=== PATIENT | male | born 1945 | race Caucasian/White ===

== ENCOUNTER 2016-08-10 19:51 | Observation (INO) | payer MEDICARE ==
[~2016-08-10] VITALS: Ht 177.8 cm; Wt 73.4 kg
--- NOTE | ~2016-08-10 | OP ---
PATIENT NAME: DEIDRE BLAKE MEDICAL RECORD: [id number] :[birth year] LOCATION:D. D.2124 ADMISSION DATE:08/10/16 SURGEON: CHARLETTE SINGH M.D. DATE OF OPERATION: 08/11/2016 PROCEDURES PERFORMED: 1. Selective coronary angiography. 2. Left heart catheterization with ventriculogram. 3. Bypass angiography. 4. Left internal mammary injection. 5. Iliofemoral runoff. INDICATION: A 70-year-old gentleman who presents with symptoms of accelerating angina. He has been having claudication involving his left hip as well. EQUIPMENT USED: A 5-Ecuadorean JL4, AR modified catheter, mammary catheter, pigtail catheter. TECHNIQUE: A 5-Ecuadorean sheath was inserted in retrograde fashion in the right common femoral artery. Next, selective coronary angiography was performed in standard 5-Ecuadorean JL4 and AR modified catheters. Bypass angiography was performed using an AR modified catheter. The internal mammary was selected with internal mammary catheter. Left heart catheterization was performed using pigtail catheter. Next, the catheter was pulled down to the level of T12. Power injection was performed to visualize the distal aorta. Next, the catheter was pulled down to the level of the aortic bifurcation. Right and left lower extremity angiograms were then performed. CORONARY ANATOMY: 1. Left main: Left main trunk is moderate in caliber. It gives rise to the LAD and circumflex. It has mild irregularities. 2. LAD: This vessel is 100% occluded in the proximal segment. There is competitive flow seen to the LAD. 3. Circumflex: This vessel is moderate in caliber. It has mild irregularities throughout its course, but nothing worse than 20%. 4. Right coronary: This vessel is moderate in caliber and dominant. It is 100% occluded in the mid segment. 5. Saphenous vein graft to the PDA. This graft is widely patent throughout its course. The anastomosis is free of disease. 6. Left internal mammary artery to the LAD: This graft is widely patent throughout its course. The anastomosis is free of disease. 7. Left ventricle: Left ventricle is normal size. There is mild LV dysfunction noted. Estimated ejection is in the order of 40%. AORTOFEMORAL RUNOFF: Distal aorta is somewhat ectatic. Each kidney receives a single arterial supply. Both renal arteries are widely patent. 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 The right common iliac artery demonstrates a hazy 70% stenosis. Right common femoral artery is widely patent. Right superficial artery is widely patent. Right popliteal artery is widely patent. Below the knee, there appears to be a 2-vessel runoff. Left common iliac artery demonstrates an ulcerated 80% stenosis. Left common femoral artery is widely patent. Left superficial femoral artery is widely patent. Left popliteal artery is widely patent. Below the knee, there appears to be 2-vessel runoff. OPERATIVE REPORT [id number] DEIDRE BLAKE IMPRESSION: 1. Patent bypass grafts to the left anterior descending and right coronary artery. The circumflex has mild disease. It appears unchanged from previous study. 2. Mild left ventricular dysfunction. 3. 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 RECOMMENDATIONS: At this point, we will stage him and likely bring him back for stenting to both iliac arteries. TRANSINT:[id number] Voice Confirmation ID: [id number] DOCUMENT ID: [id number] CHARLETTE SINGH M.D. CC: [id number] DICTATION DATE: 08/11/161457 YARD CALLER: 08/11/162058 DIS IN 08/11/16 [facility] [address] [place] [address]
--- NOTE | ~2016-08-10 | HEMODYNAMI ---
PATIENT:DEIDRE BLAKE MEDICAL RECORD: [id number] : 49 LOCATION:[address] [id number] ADMISSION DATE: 08/10/16 Generatedon:08/11/201614:57 Patient name: DEIDRE BLAKE Patient #: [id number] SSN: DO B: 1945 Date of study: 08/11/2016 Page: Of Hemodynamic Procedure Report Patient Data Patient Demographics Procedure consent was obtained First Name: DEIDRE Gender: Male Last Name: HAYDEN : 1945 [facility] Initial: L Age: 70 year(s) Patient #: [id number] Race: Unknown Additional ID: [id number] Contact details Address: [address] [place] [address] [place] State: [place] City: [place] Zip code: [address] Admission Admission Data Admission Date: 08/10/2016 Admission Time: 21:46 Room #: D2124 Lab Results Lab Result Date: 08/11/2016 Lab Result Time: 0:00 Biochemistry Name Units Result Min Max BUN mg/dl 8 --(*---)-- 7 18 Creatinine mg/dl 1 --(--*-)-- 0.6 1.3 CBC Name Units Result Min Max Hemoglobin g/dl 15 --(-*--)-- 13.5 17.5 Procedure Procedure Types Cath Procedure Diagnostic Procedure LHC LHC w/Coronaries w/Grafts Miscellaneous Procedures Moderate Sedation up to 30 minutes Peripheral Cath Diagnostic Procedure Cath Peripheral Kgsxs-Hebkjvk-Jug-Off Procedure Description Procedure Date Procedure Date: 08/11/2016 Procedure Start Time: 14:30 Procedure End Time: 14:56 Procedure Staff Name Function Rayo Sharpe MD Performing Physician Payton Collazo RN Nurse Madi Morton RT Scrub Amberly Ramirez RT Monitor Elsy Abel RT Monitor Procedure Data Cath Procedure Fluoroscopy Diagnostic fluoroscopy Total fluoroscopy Time: 3.9 time: 3.9 min min Diagnostic fluoroscopy Total fluoroscopy dose: 669 dose: 669 mGy mGy Contrast Material Contrast Material Type Amount (ml) Isovue 300 145 Entry Location Entry Primary Successful Side Size Upsize Upsize Entry Closure Succes sful Closure Location (Fr) 1 (Fr) 2 (Fr) Remarks Device Remarks Femoral Right 5 Fr Exoseal artery Estimated blood loss: 10 ml Diagnostic catheters Device Type Used For End Catheter Placement Cordis 5Fr JL 4.0 Procedure Catheter (MP) Diagnostic Infinity 5Fr Procedure AR MOD Catheter Diagnostic Infinity 5Fr Procedure IM catheter Cordis 5Fr Pigtail Procedure Catheter (MP) Procedure Complications No complications Procedure Medications Medication Administration Route Dosage Oxygen NC 2 l/min Heparin Flush Bag added to field 2 bags (1000units/500ml NS) Lidocaine 2% added to field 20 Versed I.V. 1 mg Fentanyl I.V. 50 mcg Versed I.V. 1 mg Fentanyl I.V. 50 mcg Hemodynamics Rest HGB: 15 (g/dl) Heart Rate: 72 (bpm) Pressure Samples Time Site Value (mmHg) Purpose Heart Use Rate(bpm) 14:40 LV 102/-1,12 Snapshot 73 14:41 AO 100/53(72) Pullback 76 14:41 LV 102/0,13 Pullback 76 14:47 AO 94/49(66) Snapshot 71 Gradients Valve Time Site 1 Site 2 Mean SEP/DFP Peak To Heart Use (mmHg) (sec/min) Peak Rate (mmHg) (bpm) Aortic 14:41 LV AO 19 10 2 76 102/0,13 100/53(72) Calculations Valve P-P Mean Valve Index Valve Source Name Gradient Area Flow (cm2) Aortic 2 19 2 19 Snapshots Pre Cath Intra NCS Post Cath Vital Signs Time Heart Resp SPO2 NIBP (mmHg) Rhythm Pain Sedation Rate (ipm) (%) Status Level (bpm) 14:16:29 72 16 100 135/82(117) NSR 0 (11) 10(A) , No pain 14:20:37 72 16 99 137/78(114) NSR 0 (11) 10(A) , No pain 14:24:46 74 14 99 117/75(94) NSR 0 (11) 10(A) , No pain 14:28:44 91 30 98 121/88(108) NSR 0 (11) 10(A) , No pain 14:32:52 71 24 98 113/66(98) NSR 0 (11) 9(A) , No pain 14:36:56 73 16 98 114/67(95) NSR 0 (11) 9(A) , No pain 14:41:04 79 19 98 104/53(70) NSR 0 (11) 9(A) , No pain 14:45:07 70 19 98 96/57(72) NSR 0 (11) 9(A) , No pain 14:49:09 72 19 98 99/56(76) NSR 0 (11) 9(A) , No pain 14:53:11 69 19 98 94/58(78) NSR 0 (11) 9(A) , No pain 14:54:18 68 19 98 95/58(74) NSR 0 (11) 9(A) , No pain Medications Time Medication Route Dose Verified Delivered Reason Notes Effec tiveness by by 14:08:04 Oxygen NC 2 Rayo Payton Per l/min Dell Collazo RN physician 14:08:20 Heparin Flush added 2 Rayo Rayo used for Bag to bags Dell Sharpe MD procedure (1000units/500ml field NS) 14:08:30 Lidocaine 2% added 20ml Rayo Rayo used for to vial Dell Sharpe MD procedure field 14:17:44 Versed I.V. 1 mg Rayo Payton for Dell Collazo RN sedation 14:18:01 Fentanyl I.V. 50 Rayo Payton for mcg Dell Collazo RN sedation 14:28:21 Versed I.V. 1 mg Rayo Payton for Dell Collazo RN sedation 14:28:24 Fentanyl I.V. 50 Rayo Payton for epifanio Collazo RN sedation Procedure Log Time Note 13:32:10 Madi Morton RT(R) sent for patient. Start room use. 13:32:11 Time tracking: Regular hours 13:32:15 Plan of Care:Hemodynamics will remain stable., Cardiac rhythm will remain stable., Comfort level will be maintained., Respiratory function will remain adequate., Patient/ family verbilizes understanding of procedure., Procedure tolerated without complication., Recovers from procedure without complications.. 14:06:55 Patient received from Med II to [facility] 2 Alert and oriented. Tansferred to table in Supine position. 14:07:08 Warm blankets applied, and anu hugger turned on for patient comfort. 14:07:09 Correct patient and procedure confirmed by team. 14:07:11 Signed procedure consent form obtained from patient. 14:07:14 ECG and BP/O2 sat monitors applied to patient. 14:08:04 Oxygen 2 l/min NC was administered by Payton Collazo RN; Per physician; 14:08:20 Heparin Flush Bag (1000units/500ml NS) 2 bags added to field was administered by Rayo Sharpe MD; used for procedure; 14:08:30 Lidocaine 2% 20ml vial added to field was administered by Rayo Sharpe MD; used for procedure; 14:15:18 Baseline sample Acquired. 14:15:18 Vital chart was started 14:15:23 Full Disclosure recording started 14:15:28 H&P Date Dictated: 08/11/2016 New H&P dictated by physician.. 14:15:55 Pre-procedure instructions explained to patient. 14:15:55 Pre-op teaching completed and patient verbalized understanding. 14:15:59 Family in waiting room. 14:16:04 Patient NPO since Midnight. 14:16:13 Is the patient allergic to Iodine/contrast media? No. 14:16:14 Was the patient premedicated? No 14:16:27 Is patient on blood thinner?Yes 14:16:29 ACC The patient was administered the following blood thiners within the last 24 hours: ACCPlavix 14:16:32 Patient diabetic? No. 14:16:35 Previous problem with sedation/anesthesia? No ? 14:16:47 Snore? Yes 14:16:49 Sleep apnea? No 14:16:52 Deviated septum? No 14:16:56 Opens mouth fully? Yes 14:16:58 Sticks out tongue? Yes 14:17:00 Airway obstruction? No ? 14:17:04 Dentures? No ? 14:17:09 Pre procedure: right dorsailis pedis pulse 1+ Palpable, but thready & weak; easily obliterated 14:17:12 Patient pain scale 0/10 ?. 14:17:18 IV patent on arrival in left forearm with 0.9% NaCl at [facility]. 14:17:24 Lab results completed and on chart. 14:17:29 Bilateral groins area was prepped with chlora-prep and draped in sterile fashion 14:17:30 Alarms reviewed by R. N. 14:17:31 Sharps counted by scrub and verified by R.N. 14:17:33 Physician arrived 14::33 --------ALL STOP TIME OUT------ 14:17:34 Final Timeout: patient, procedure, and site verified with staff and physician. All members of the team are in agreement. 14:17:36 Bilateral groins site verified by team. 14:17:40 Physical assessment completed. ASA score P 2 - A patient with mild systemic disease as per Rayo Sharpe MD. 14:17:44 Versed 1 mg I.V. was administered by Payton Collazo RN; for sedation; 14:17:44 Sedation plan: IV Moderate Sedation Versed, Fentanyl 14:18:01 Fentanyl 50 mcg I.V. was administered by Payton Collazo RN; for sedation; 14:18:21 Use device set Femoral Dx 14:18:22 Acist Syringe opened to sterile field. 14:18:22 Bag Decanter opened to sterile field. 14:18:23 Medline Cath Pack opened to sterile field. 14:18:23 Terumo 5Fr [place] Sheath opened to sterile field. 14:18:24 St Judson 260cm J .035 wire opened to sterile field. 14:18:25 Acist Hand Control opened to sterile field. 14:18:25 Acist Manifold opened to sterile field. 14:18:26 Diagnostic Infinity 5Fr Multipack catheter opened to sterile field. 14:18:26 Tegaderm 4 x 4 opened to sterile field. 14:19:37 Lab Result : Hemoglobin 15 g/dl 14:19:37 Lab Result : Creatinine 1 mg/dl 14:19:37 Lab Result : BUN 8 mg/dl 14:28:21 Versed 1 mg I.V. was administered by Payton Collazo RN; for sedation; 14:28:24 Fentanyl 50 mcg I.V. was administered by Payton Collazo RN; for sedation; 14:29:36 Zero performed for pressure channel P1 14:29:56 Procedure started. 14:30:08 Local anesthetic to right femoral artery with Lidocaine 2% by Rayo Sharpe MD.INITIAL ACCESS ONLY 14:31:26 A 5 Fr sheath was inserted into the Right Femoral artery 14:32:18 A Cordis 5Fr JL 4.0 Catheter (MP) was advanced over the wire and used for Procedure. 14:32:48 LCA angiography performed. 14:33:54 Catheter exchanged over wire. 14:34:19 A Diagnostic Infinity 5Fr AR MOD Catheter was advanced over the wire and used for Procedure. 14:34:52 RCA angiography performed. 14:35:30 SVG to RCA angiography performed. 14:37:00 Catheter exchanged over wire. 14:37:05 A Diagnostic Infinity 5Fr IM catheter was advanced over the wire and used for Procedure. 14:38:04 EMANUEL to LAD angiography performed. 14:38:48 Catheter exchanged over wire. 14:38:54 A Cordis 5Fr Pigtail Catheter (MP) was advanced over the wire and used for Procedure. 14:40:37 LV angiography performed. 14:40:38 LV gram done using ROSENBAUM 14:40:40 LV hemodynamics recorded. 14:40:46 Injector settings: Ml/sec: 7, Volume: 15, 14:40:52 EF : 40 % 14:42:39 Catheter pulled down to level of T-12. 14:42:55 Abdominal Aortagram was performed. 14:44:15 Left leg runoff performed. 14:45:24 Right leg runoff performed. 14:50:20 Catheter exchanged over wire. 14:52:12 Cordis 5Fr Exoseal opened to sterile field. 14:53:10 Sheath removed intact; hemostasis achieved with Exoseal to the Right Femoral artery. 14:53:12 Procedure ended.(Physican Out) 14:55:20 Fluoroscopy time 03.90 minutes. 14:55:24 Fluoroscopy dose: 669 mGy 14:55:24 Flurop Dose total: 669 14:55:29 Contrast amount:Isovue 300 145ml. 14:55:30 Sharps counted by scrub and verified by R.N. 14:55:32 Insertion/operative site no bleeding no hematoma. 14:55:39 Post Procedure Pulses reassessed and unchanged 14:55:42 Post-procedure physical assessment completed. ASA score P 2 - A patient with mild systemic disease as per Rayo Sharpe MD. 14:55:44 Post procedure rhythm: unchanged. 14:55:46 Estimated blood loss: 10 ml 14:55:47 Post procedure instruction explained to patient.Patient verbalizes understanding. 14:55:47 Patient needs reinforcement of post procedure teaching. 14:56:00 Procedure type changed to Cath procedure, Diagnostic procedure, LHC, LHC w/Coronaries w/Grafts, Miscellaneous Procedures, Moderate Sedation up to 30 minutes, Peripheral Cath Diagnostic Procedure, Cath Peripheral, Yaxsa-Fihaxwl-Lgs-Off 14:56:04 Procedure Complication : No complications 14:56:27 Procedure and supply charges have been captured, reviewed, submitted and are correct. 14:56:30 Vital chart was stopped 14:56:30 See physician's report for complete and final results. 14:56:32 Report given to PCU. 14:56:36 Patient transfered to PCU with Bed. 14:56:38 Procedure ended. 14:56:38 Full Disclosure recording stopped 14:56:45 End room use (Document Last) Device Usage Item Name Manufacture Quantity Catalog Hospital Part Current Minimal Lo t# / Number Charge Number Stock Stock Serial# Code Acist Acist 1 70406 [id number] 196752 [id number] 20 Syringe [employer] Bag Microtek 1 2002S 011026 11229 392178 5 Decanter [employer] Inc[employer] Medline Cardinal 1 [id number] 931033 76973 503898 5 Cath Pack Health Terumo 5Fr Terumo 1 [id number] 169009 067965 215362 [address] Judson 1 088688 995847 279467 236935 30 260cm J .035 wire Acist Hand Acist 1 74992 139359 214903 188599 5 Control Medical Systems Inc Acist Acist 1 84502 158668 943035 772580 5 Manifold [employer] Inc Diagnostic Cardinal 1 [id number] 459557 48063 235750 30 Circuport 5Fr Multipack catheter Tegaderm 4 3M 1 1626W 281337 586320 076384 5 x 4 Cordis 5Fr Cardinal 1 082928 5 JL 4.0 Health Catheter (MP) Diagnostic Cardinal 1 [id number] 133602 685767 831301 15 Infinity Health 5Fr AR MOD Catheter Diagnostic Cardinal 1 [id number] 709504 742599 565033 5 [employer] Health 5Fr IM catheter Cordis 5Fr Cardinal 1 124953 5 Pigtail Health Catheter (MP) Cordis 5Fr Cardinal 1 EX500 134205 183498 562221 10 Exoseal Health Signature Audit [place] Stage Time Signature Unsigned Intra-Procedure 08/11/2016 Madi Morton 2:57:21 PM RT(R) Signatures Monitor : Amberly Ramirez Signature : RT Date : Time : Monitor : Elsy Abel RT Signature : Date : Time : [facility] [address] [place] [address]
[2016-08-10 20:56] LABS: BASOPHILS 0.3 % (0-2); EOSINOPHILS 1.8 % (0-7); HEMATOCRIT 44.8 % (42.0-54.0); HEMOGLOBIN 15.1 g/dL (13.5-17.5); IMMATURE GRANULOCYTES 0.2 % (0-5); LYMPHOCYTES 29.3 % (15-50); MCH 32.8 pg (26.0-34.0); MCHC 33.7 g/dL (31.0-37.0); MCV 97.4 fL (80.0-100.0); MEAN PLATELET VOLUME 9.4 fL (7.4-10.4); MONOCYTES 8.4 % (2-11); PLATELET COUNT 153 10x3/uL (130-400); RDW 12.8 % (11.5-14.5); WBC 8.8 10x3/uL (4.8-10.8)
[2016-08-10 21:03] LABS: INR 1.03 (0.85-1.17); PROTIME 13.3 SECONDS (11.6-15.0)
[2016-08-10 21:04] LABS: APTT 29.3 SECONDS (22.8-39.4)
[2016-08-10 21:05] LABS: D-DIMER-QUANTITATIVE < 0.27 ug/mLFEU (0.20-0.54)
[2016-08-10 21:21] LABS: ALBUMIN 3.6 g/dL (3.4-5.0); ALKALINE PHOSPHATASE 98 U/L (46-116); ALT (SGPT) 29 U/L (10-68); BILIRUBIN - TOTAL 0.43 mg/dL (0.2-1.3); CALC OSMOLALITY 277 mosm/kg (275-300); CARBON DIOXIDE 25.5 mmol/L (21.0-32.0); CHLORIDE - SERUM 106 mmol/L (98-107); CREATININE - SERUM 0.9 mg/dL (0.6-1.3); GLUCOSE 92 mg/dL (74-106); POTASSIUM - SERUM 4.2 mmol/L (3.5-5.1); PROTEIN - SERUM 6.4 g/dL (6.4-8.2); SODIUM 140 mmol/L (136-145); UREA NITROGEN 9 mg/dL (7-18); eGFR NON AFRICAN AMERICAN 89 mL/min (90-120)
[2016-08-10 21:28] LABS: AMYLASE - SERUM 51 U/L (25-115); CKMB 2.9 U/L (0.0-3.6); LIPASE 107 U/L (73-393); PRO BNP 203 pg/mL (0-125); TROPONIN-I < 0.017 ng/mL (0.000-0.060)
[2016-08-10 23:58] VITALS: BP 116/68
[2016-08-11 00:03] VITALS: Ht 177.8 cm; Wt 73.4 kg
[2016-08-11] MEDS ORDERED: ZETIA10 MG PO (00:08)
[2016-08-11] MEDS ORDERED: PLAVIX75 MG PO (00:09)
[2016-08-11] MEDS ORDERED: COREG 3.1253.125 MG PO (00:09)
[2016-08-11] MEDS ORDERED: LISINOPRIL10 MG PO (00:09)
[2016-08-11] MEDS ORDERED: LIPITOR40 MG PO (00:10)
[2016-08-11] MEDS ORDERED: BAYER ASPIRIN325 MG PO (00:10)
[2016-08-11] MEDS ORDERED: NITROSTAT0.4 MG SL (00:11)
[2016-08-11 04:11] VITALS: BP 108/63
--- NOTE | 2016-08-11 06:38 | NUR ---
SLEPT SINCE ARRIVAL NO CHEST PAIN. MONITOR IS 1ST DEGREE BLOCK WITH BBB.
[2016-08-11 07:31] LABS: BASOPHILS 0.2 % (0-2); EOSINOPHILS 1.6 % (0-7); IMMATURE GRANULOCYTES 0.1 % (0-5); LYMPHOCYTES 25.1 % (15-50); MCH 32.8 pg (26.0-34.0); MCHC 33.3 g/dL (31.0-37.0); MCV 98.5 fL (80.0-100.0); MONOCYTES 8.6 % (2-11); NEUTROPHILS 64.4 % (40-80); PLATELET COUNT 161 10x3/uL (130-400); RBC 4.57 10x6/uL (4.20-6.10); RDW 12.9 % (11.5-14.5)
[2016-08-11 07:34] LABS: CALC OSMOLALITY 280 mosm/kg (275-300); CALCIUM 8.5 mg/dL (8.5-10.1); CARBON DIOXIDE 29.4 mmol/L (21.0-32.0); CHLORIDE - SERUM 106 mmol/L (98-107); GLUCOSE 92 mg/dL (74-106); POTASSIUM - SERUM 3.8 mmol/L (3.5-5.1); SODIUM 142 mmol/L (136-145); UREA NITROGEN 8 mg/dL (7-18); eGFR NON AFRICAN AMERICAN 79 mL/min (90-120)
--- NOTE | 2016-08-11 07:45 | NUR ---
INTRODUCED MYSELF TO PT PRIMARY RN FOR TODAYS SHIFT. OBTAINED CONSENTS FOR LEFT HEART CATH TODAY WITH . PT CAN HAVE A LIGHT BREAKFAST AND VERBALIZED UNDERSTANDING TO BE NPO AFTERWARDS. PT HAS AT BEDSIDE DENIES ANY CURRENT CP OR NEEDS. CL IN REACH. WILL CPOC.
[2016-08-11 09:49] VITALS: BP 118/57
[2016-08-11 13:12] VITALS: BP 141/84
--- NOTE | 2016-08-11 14:01 | NUR ---
CATH CALLED TO PREOP PT. PREOP COMPLETED AND PT LEAVING WITH CATH TEAM AT THIS TIME.
--- NOTE | 2016-08-11 15:18 | NUR ---
PT BACK FROM [employer]. LUIS CARLOS [facility]. PT TO LAY FLAT FOR 2 HOURS AND IS AWARE. VSS AND BEING MONITERED Q15. PERIPHERAL PULSES INTACT. NS CONNECTED TO L.AC PIV INFUSING @100ML/HR. FAMILY AT BEDSIDE, NO FURTHER NEEDS WILL CPOC.
[2016-08-11 15:32] VITALS: BP 96/67
--- NOTE | 2016-08-11 17:59 | NUR ---
DISCHARGE PAPERS SIGNED. D/C PTS L.AC PIV WITH CATHETER TIP FULLY INTACT. PT READY TO BE TRANSPORTED TO LOBBY DENIES ANY QUESTIONS OR CONCERNS.
== END 2016-08-11 18:09 | disposition home or self-care (01) ==
LOC: D.ER 19:51 → OBSVTIME 21:46 → D.M2 21:46
PROVIDERS: Family Medicine; Internal Medicine Cardiovascular Disease; ADMIT Emergency Medicine
DX: R07.89 Other chest pain (principal); F17.203 Nicotine dependence unspecified, with withdrawal; Z95.1 Presence of aortocoronary bypass graft; I70.8 Atherosclerosis of other arteries; I25.10 Atherosclerotic heart disease of native coronary artery without angina pectoris; I10 Essential (primary) hypertension; E78.5 Hyperlipidemia, unspecified; I44.7 Left bundle-branch block, unspecified

== ENCOUNTER 2016-10-19 09:40 | Outpatient (CLI) | payer MEDICARE ==
[~2016-10-19] VITALS: Ht 177.8 cm; Wt 76.8 kg
--- NOTE | ~2016-10-19 | HEMODYNAMI ---
PATIENT:DEIDRE BLAKE MEDICAL RECORD: [id number] : 49 LOCATION:[facility].2119 ADMISSION DATE: 10/19/16 Generatedon:10/20/201610:51 Patient name: DEIDRE BLAKE Patient #: [id number] SSN: DO B: 1945 Date of study: 10/20/2016 Page: Of Hemodynamic Procedure Report Patient Data Patient Demographics Procedure consent was obtained First Name: DEIDRE Gender: Male Last Name: HAYDEN : 1945 [facility] Initial: L Age: 70 year(s) Patient #: [id number] Race: Unknown Additional ID: [id number] Contact details Address: [address] [place] [address] [place] State: [place] City: [place] Zip code: [address] Admission Admission Data Admission Date: 10/19/2016 Admission Time: 9:40 Room #: 2119 Procedure Procedure Types Cath Procedure Diagnostic Procedure LHC LHC w/Coronaries w/Grafts FFR/IVUS Intra-Coronary IVUS Initial Intra-Coronary IVUS Additional PCI Procedure Coronary Stent Initial x2 Coronary Stent Additional Miscellaneous Procedures Moderate Sedation up to 30 minutes Procedure Description Procedure Date Procedure Date: 10/20/2016 Procedure Start Time: 10:17 Procedure End Time: 10:50 Procedure Staff Name Function Olayinka Armenta MD Performing Physician Payton Collazo RN Nurse Madi Morton RT Monitor Amberly Ramirez RT Scrub Procedure Data Cath Procedure Fluoroscopy Diagnostic fluoroscopy Total fluoroscopy Time: time: 11.6 min 11.6 min Diagnostic fluoroscopy Total fluoroscopy dose: dose: 1326 mGy 1326 mGy Contrast Material Contrast Material Type Amount (ml) Isovue 300 150 Entry Location Entry Primary Successful Side Size Upsize Upsize Entry Closure Succes sful Closure Location (Fr) 1 (Fr) 2 (Fr) Remarks Device Remarks Femoral Right 5 Fr 6 Fr Exoseal artery Short Estimated blood loss: 10 ml Diagnostic catheters Device Type Used For End Catheter Placement Cordis 5Fr Pigtail Procedure Catheter (MP) Cordis 5Fr JL 4.0 Procedure Catheter (MP) Cordis 5Fr 3DRC Catheter Procedure (MP) Diagnostic Infinity 5Fr Procedure AR 2 MOD catheter Procedure Complications No complications Procedure Medications Medication Administration Route Dosage Oxygen NC 2 l/min Heparin Flush Bag added to field 2 bags (1000units/500ml NS) Lidocaine 2% added to field 20 Plavix P.O. 75 mg Versed I.V. 1 mg Fentanyl I.V. 50 mcg Versed I.V. 1 mg Fentanyl I.V. 50 mcg Versed I.V. 1 mg Fentanyl I.V. 50 mcg Versed I.V. 1 mg Fentanyl I.V. 50 mcg Heparin Bolus I.V. 4000 units Hemodynamics Rest Heart Rate: 78 (bpm) Pressure Samples Time Site Value (mmHg) Purpose Heart Use Rate(bpm) 10:20 AO 97/60(75) Snapshot 75 Snapshots Pre Cath Intra NCS Post Cath Vital Signs Time Heart Resp SPO2 etCO2 [id number] NIBP (mmHg) Rhythm Pain Sedation Rate (ipm) (%) (mmHg) (mmHg) Status Level (bpm) 8:48:32 78 14 100 0 0 134/83(106) NSR 0 (11) 10(A) , No pain 8:52:46 81 15 100 0 0 128/71(100) NSR 0 (11) 10(A) , No pain 8:56:54 87 17 100 0 0 131/80(108) NSR 0 (11) 10(A) , No pain 9:01:04 77 15 98 0 0 127/80(112) NSR 0 (11) 10(A) , No pain 9:05:14 79 15 99 0 0 122/71(94) NSR 0 (11) 10(A) , No pain 9:09:21 77 16 98 0 0 106/70(84) NSR 0 (11) 10(A) , No pain 9:13:25 73 16 97 0 0 103/68(81) NSR 0 (11) 10(A) , No pain 9:17:33 71 14 97 0 0 96/55(71) NSR 0 (11) 10(A) , No pain 9:21:37 70 17 97 0 0 92/55(69) NSR 0 (11) 10(A) , No pain 9:25:38 70 16 97 0 0 90/55(68) NSR 0 () 10(A) , No pain 9:29:42 71 16 96 0 0 91/52(80) NSR 0 () 10(A) , No pain 9:33:44 70 16 97 0 0 91/59(68) NSR 0 (11) 10(A) , No pain 9:37:47 71 19 96 0 0 89/52(68) NSR 0 () 10(A) , No pain 9:41:50 69 16 97 0 0 101/53(76) NSR 0 () 10(A) , No pain 9:45:53 71 15 97 0 0 96/61(75) NSR 0 () 10(A) , No pain 9:49:55 71 16 97 0 0 98/62(78) NSR 0 () 10(A) , No pain 9:53:55 72 15 99 0 0 115/73(91) NSR 0 () 10(A) , No pain 9:57:58 73 16 98 0 0 122/76(102) NSR 0 () 10(A) , No pain 10:02:02 74 16 98 0 0 127/83(96) NSR 0 () 10(A) , No pain 10:06:08 74 16 99 0 0 125/84(102) NSR 0 () 10(A) , No pain 10:10:16 74 16 99 0 0 128/76(93) NSR 0 () 10(A) , No pain 10:14:21 75 16 98 0 0 134/86(99) NSR 0 () 10(A) , No pain 10:18:31 73 15 98 0 0 106/75(88) NSR 0 () 9(A) , No pain 10:22:35 74 19 96 0 0 107/68(87) NSR 0 () 9(A) , No pain 10:26:41 72 19 97 0 0 102/63(83) NSR 0 () 9(A) , No pain 10:30:44 76 15 96 0 0 104/64(75) NSR 0 (11) 9(A) , No pain 10:34:48 72 18 97 0 0 111/64(86) NSR 0 (11) 9(A) , No pain 10:38:54 72 19 97 0 0 112/67(88) NSR 0 (11) 9(A) , No pain 10:42:59 74 19 97 0 0 115/67(91) NSR 0 (11) 9(A) , No pain 10:45:21 73 17 97 0 0 113/71(94) NSR 0 (11) 9(A) , No pain 10:49:25 74 11 97 0 0 112/74(93) NSR 0 (11) 9(A) , No pain Medications Time Medication Route Dose Verified Delivered Reason Notes Effectiveness by by 8:36:01 Plavix P.O. 75 mg Olayinka Payton for Geovany Collazo RN antiplatelet therapy 8:48:42 Oxygen NC 2 Olayinka Payton Per physician l/min Geovany Collazo RN 8:48:50 Heparin Flush added 2 Olayinka Olayinka used for Bag to bags Geovany Armenta MD procedure (1000units/500ml field NS) 8:49:00 Lidocaine 2% added 20ml Olayinka Olayinka used for to vial Geovany Armenta MD procedure field 10:10:44 Versed I.V. 1 mg Olayinka Payton for sedation Geovany Collazo RN 10:10:51 Fentanyl I.V. 50 Olayinka Payton for sedation mcg Geovany Collazo RN 10:13:06 Versed I.V. 1 mg Olayinka Payton for sedation Geovany Collazo RN 10:13:10 Fentanyl I.V. 50 Olayinka Payton for sedation mcg Geovany Collazo RN 10:15:08 Versed I.V. 1 mg Olayinka Payton for sedation Geovany Collazo RN 10:15:11 Fentanyl I.V. 50 Olayinka Payton for sedation mcg Geovany Collazo RN 10:17:38 Versed I.V. 1 mg Olayinka Payton for sedation Geovany Collazo RN 10:17:41 Fentanyl I.V. 50 Olayinka Payton for sedation mcg Geovany Collazo RN 10:24:09 Heparin Bolus I.V. 4000 Olayinka Payton for dose units Geovany Collazo RN anticoagulation verified with dr armenta Procedure Log Time Note 8:10:08 Madi Morton RT(R) sent for patient. Start room use. 8:30:06 Diagnostic Cath status Elective 8:30:09 Time tracking: Regular hours 8:30:14 Plan of Care:Hemodynamics will remain stable., Cardiac rhythm will remain stable., Comfort level will be maintained., Respiratory function will remain adequate., Patient/ family verbilizes understanding of procedure., Procedure tolerated without complication., Recovers from procedure without complications.. 8:35:54 Patient received from Med II to CCL 1 Alert and oriented. Tansferred to table in Supine position. 8:35:56 Warm blankets applied, and aun hugger turned on for patient comfort. 8:36:00 Correct patient and procedure confirmed by team. 8:36:01 Plavix 75 mg P.O. was administered by Payton Collazo RN; for antiplatelet therapy; 8:36:02 Signed procedure consent form obtained from patient. 8:36:15 H&P Date Dictated: 10/19/2016 Within 30 days and on chart.. 8:36:17 Pre-procedure instructions explained to patient. 8:36:19 Family in waiting room. 8:36:21 Patient NPO since Midnight. 8:38:52 ECG and BP/O2 sat monitors applied to patient. 8:47:19 Vital chart was started 8:48:42 Oxygen 2 l/min NC was administered by Payton Collazo RN; Per physician; 8:48:50 Heparin Flush Bag (1000units/500ml NS) 2 bags added to field was administered by Olayinka Armenta MD; used for procedure; 8:49:00 Lidocaine 2% 20ml vial added to field was administered by Olayinka Armenta MD; used for procedure; 8:52:31 Baseline sample Acquired. 8:52:58 Rhythm: sinus rhythm 8:52:59 Full Disclosure recording started 8:53:01 Pre-op teaching completed and patient verbalized understanding. 8:53:03 Is the patient allergic to Iodine/contrast media? No. 8:53:05 Is patient on blood thinner?Yes 8:53:07 ACC The patient was administered the following blood thiners within the last 24 hours: ACCPlavix 8:53:42 Patient diabetic? No. 8:53:50 Previous problem with sedation/anesthesia? No ? 8:53:51 Snore? Yes 8:53:52 Sleep apnea? No 8:53:53 Deviated septum? No 8:53:54 Opens mouth fully? Yes 8:53:55 Sticks out tongue? Yes 8:53:56 Airway obstruction? No ? 8:54:07 Dentures? No Lost teeth 8:54:38 Pre procedure: right dorsailis pedis pulse 1+ Palpable, but thready & weak; easily obliterated 8:54:46 Patient pain scale 0/10 ?. 8:54:52 IV patent on arrival in left forearm with 0.9% NaCl at [facility]. 8:54:54 Lab results completed and on chart. 8:54:59 Right groin area was prepped with chlora-prep and draped in sterile fashion 8:55:05 Alarms reviewed by RBro N. 8:55:06 Sharps counted by scrub and verified by R.N. 9:07:29 Use device set Femoral Dx 9:07:31 Tegaderm 4 x 4 opened to sterile field. 9:07:32 Acist Hand Control opened to sterile field. 9:07:32 Acist Manifold opened to sterile field. 9:07:34 Acist Syringe opened to sterile field. 9:07:34 Bag Decanter opened to sterile field. 9:07:34 Medline Cath Pack opened to sterile field. 9:07:35 Terumo 5Fr [place] Sheath opened to sterile field. 9:07:35 St Judson 260cm J .035 wire opened to sterile field. 9:07:37 Diagnostic Infinity 5Fr Multipack catheter opened to sterile field. 9:21:55 - 9:21:59 Case delayed due to physician working in 2. 9:39:07 Family notified of the delay. 9:39:15 - 10:10:00 --------ALL STOP TIME OUT------ :10: Final Timeout: patient, procedure, and site verified with staff and physician. All members of the team are in agreement. 10:10:28 Right groin site verified by team. 10:10:31 Physical assessment completed. ASA score P 2 - A patient with mild systemic disease as per Olayinka Armenta MD. 10:10:33 Sedation plan: IV Moderate Sedation Versed, Fentanyl 10:10:44 Versed 1 mg I.V. was administered by Payton Collazo RN; for sedation; 10:10:51 Fentanyl 50 mcg I.V. was administered by Paytonkelsea Collazo RN; for sedation; 10:11:24 Zero performed for pressure channel P1 10:13:06 Versed 1 mg I.V. was administered by Payton Collazo RN; for sedation; 10:13:10 Fentanyl 50 mcg I.V. was administered by Payton Collazo RN; for sedation; 10:15:08 Versed 1 mg I.V. was administered by Payton Collazo RN; for sedation; 10:15:11 Fentanyl 50 mcg I.V. was administered by Paytonkelsea Collazo RN; for sedation; 10:17:18 Procedure started. 10:17:22 Local anesthetic to right femoral artery with Lidocaine 2% by Olayinka Armenta MD.INITIAL ACCESS ONLY 10:17:38 Versed 1 mg I.V. was administered by Payton Collazo RN; for sedation; 10:17:41 Fentanyl 50 mcg I.V. was administered by Paytonkelsea Collazo RN; for sedation; 10:18:28 A 5 Fr sheath was inserted into the Right Femoral artery 10:18:41 A Cordis 5Fr Pigtail Catheter (MP) was advanced over the wire and used for Procedure. 10:19:05 LV angiography performed. 10:19:06 LV gram done using ROSENBAUM 10:19:13 EF : 35 % 10:19:20 Injector settings: Ml/sec: 10, Volume: 20, 10:19:25 Catheter removed. 10:19:32 A Cordis 5Fr JL 4.0 Catheter (MP) was advanced over the wire and used for Procedure. 10:20:28 LCA angiography performed. 10:20:36 Catheter removed. 10:20:45 A Cordis 5Fr 3DRC Catheter (MP) was advanced over the wire and used for Procedure. 10:20:58 Terumo 6Fr [place] Sheath opened to sterile field. 10:20:58 ApplyKit BasixCompak Inflation Kit opened to sterile field. 10:20:58 Mcmahon FlyDataisper J 300cm 0.014 guide wire opened to sterile field. 10:21:10 EMANUEL to LAD angiography performed. 10:21:30 Catheter removed. 10:22:02 A Diagnostic Infinity 5Fr AR 2 MOD catheter was advanced over the wire and used for Procedure. 10:22:36 SVG to RCA angiography performed. 10:22:46 Catheter removed. 10:23:00 Cordis 6FR XB 3.5 guide catheter opened to sterile field. 10:23:00 Harvest [place] Eagleye IVUS Catheter opened to sterile field. 10:23:23 Sheath upsized to a 6 Fr Short. 10:23:47 6 Fr XB 3.5 guide catheter was inserted over the wire 10:24:09 Heparin Bolus 4000 units I.V. was administered by Payton Collazo RN; fo r anticoagulation; dose verified with dr armenta 10:24:49 Whisper wire advanced. 10:25:17 Wire advanced across lesion. 10:26:37 IVUS catheter advanced over wire. 10:27:30 IVUS pass to LMCA lesion performed. 10:27:57 IVUS pass to Circ lesion performed. 10:29:36 IVUS catheter removed over wire. 10:32:58 The Medtronic Resolute 3.5 X 12 stent was advanced then removed because of failure to cross lesion 10:33:31 Inflation number: 1 A [place] DebtMarket Woodruff 3.5 X 12 balloon was prepped and advanced across the 2nd Ob Ronna, then inflated to 15 KEITH for 0:10 (min:sec). 10:35:15 Balloon removed over the wire. 10:35:46 Inflation Number: 2 A Medtronic Resolute 3.5 X 12 stent was prepped and advanced across the 2nd Ob Ronna. The stent was deployed at 9 KEITH for 0:10 (min:sec). 10:36:00 Stent catheter was removed intact over wire. 10:37:49 Inflation Number: 1 A [place] OTW 3.5 x 22 stent was prepped and advanced across the Mid CX. The stent was deployed at 15 KEITH for 0:10 (min:sec). 10:40:01 Wire redirected down the AV Circ. 10:40:04 Stent catheter was removed intact over wire. 10:41:20 Inflation number: 1 A Euphora 2.5 x 15 Balloon was prepped and advanced across the Dist CX, then inflated to 15 KEITH for 0:10 (min:sec). 10:41:30 Balloon removed over the wire. 10:42:53 Inflation Number: 1 A Jose OTW 3.5 x 22 stent was prepped and advanced across the LMCA. The stent was deployed at 15 KEITH for 0:10 (min:sec). 10:43:50 Stent catheter was removed intact over wire. 10:43:51 Wire removed. 10:43:51 Guide catheter removed. 10:43:58 Cordis 6Fr Exoseal opened to sterile field. 10:44:09 Sheath removed intact; hemostasis achieved with Exoseal to the Right Femoral artery. 10:44:14 Procedure ended.(Physican Out) 10:46:51 Fluoroscopy time 11.60 minutes. 10:46:55 Fluoroscopy dose: 1326 mGy 10:46:55 Flurop Dose total: 1326 10:46:58 Contrast amount:Isovue 300 150ml. 10:46:59 Sharps counted by scrub and verified by R.N. 10:47:14 Insertion/operative site no bleeding no hematoma. 10:47:17 Post-op/insertion site Right Femoral artery dressed using a 4 x 4 and Tegaderm. 10:47:19 Post Procedure Pulses reassessed and unchanged 10:47:25 Post-procedure physical assessment completed. ASA score P 2 - A patient with mild systemic disease as per Olayinka Armenta MD. 10:47:27 Post procedure rhythm: unchanged. 10:47:30 Estimated blood loss: 10 ml 10:47:31 Post procedure instruction explained to patient.Patient verbalizes understanding. 10:47:31 Patient needs reinforcement of post procedure teaching. 10:47:55 Procedure type changed to Cath procedure, Diagnostic procedure, LHC, LH C w/Coronaries w/Grafts, FFR/IVUS, Intra-Coronary IVUS Initial, Intra-Coronary IVUS Additional, PCI procedure, Coronary Stent Initial x2, Coronary Stent Additional, Miscellaneous Procedures, Moderate Sedation up to 30 minutes 10:48:00 Procedure Complication : No complications 10:49:56 Procedure and supply charges have been captured, reviewed, submitted an d are correct. 10:49:57 Vital chart was stopped 10:49:57 See physician's report for complete and final results. 10:49:59 Report given to PCU. 10:50:02 Patient transfered to PCU with Bed. 10:50:05 Procedure ended. 10:50:05 Full Disclosure recording stopped 10:50:10 End room use (Document Last) Intervention Summary Intervention Notes Time ActionType Lesion and Equipment Action# Pressure Duration Attributes Used 10:32:58 Discard Medtronic Stent Resolute 3.5 X 12 stent 10:33:31 Inflate 2nd Ob Ronna [place] 1 15 00:10 balloon Sci Woodruff 3.5 X 12 balloon 10:35:46 Place stent 2nd Ob Ronna Medtronic 2 9 00:10 Resolute 3.5 X 12 stent 10:37:49 Place stent Mid CX Jose OTW 1 15 00:10 3.5 x 22 stent 10:41:20 Inflate Dist CX Euphora 1 15 00:10 balloon 2.5 x 15 Balloon 10:42:53 Place stent LMCA [place] OTW 1 15 00:10 3.5 x 22 stent Device Usage Item Name Manufacture Quantity Catalog Number Hospital Part Current Min imal Lot# / Charge Number Stock Stock Serial# Code Tegaderm 4 3M 1 [id number] [id number] [id number] 5 x 4 Acist Hand Acist 1 64354 030941 273968 936952 5 Control Medical Systems Inc Acist Acist 1 74125 164367 315208 827247 5 Manifold Medical Systems Inc Acist Acist 1 96071 633040 329059 070521 20 Syringe Medical Systems [employer] Bag Microtek 1 2002S 509806 87514 340770 5 Teak. Medline Cardinal 1 [id number] 655777 74685 721802 5 Siterra Terumo 5Fr Terumo 1 DMN071 052555 906202 709597 [address] [place] [address] Judson 1 320546 207424 988314 532232 30 260cm J .035 wire Diagnostic Cardinal 1 [id number] 889361 00252 030632 30 Infinity Health 5Fr Multipack catheter Cordis 5Fr Cardinal 1 174950 5 Pigtail Health Catheter (MP) Cordis 5Fr Cardinal 1 193036 5 JL 4.0 Health Catheter (MP) Cordis 5Fr Cardinal 1 893854 5 3DRC Health Catheter (MP) Terumo 6Fr Terumo 1 URR396 022037 178107 510280 40 [place] Sheath Merit Merit 1 QM7439 310700 302428 897930 15 Curbsy Medical Inflation Kit Mcmahon Mcmahon 1 [id number] 073288 265556 227569 5 Whisper J Vascular 300cm 0.014 guide wire Diagnostic Cardinal 1 [id number] 417093 281718 798521 20 Infinity Health 5Fr AR 2 MOD catheter Harvest Harvest 1 [id number] 295373 317590 212193 8 [place] Eagleye IVUS Catheter Medtronic Medtronic 1 [id number] 947981 311680 7 [id number] Resolute 3.5 X 12 stent [place] Sci [place] 1 [id number] 190787 627413 409162 1 Spectraseis 3.5 X 12 balloon [place] OTW Medtronic 2 [id number] 586290 6819810 822945 5 [id number] 3.5 x 22 [id number] stent Euphora 2.5 Medtronic 1 [id number] 935731 251996 978147 5 [id number] x 15 Balloon Cordis 6Fr Cardinal 1 EX600 029517 829673 122051 10 Exoseal Health Cordis 6FR Cardinal 1 [id number] 677391 840543 136859 2 XB 3.5 Health guide catheter Signature Audit Barnard Stage Time Signature Unsigned Intra-Procedure 10/20/2016 Madi Morton 10:51:01 AM RT(R) Signatures Monitor : Madi Morton RT Signature : Date : Time : [id number] [place] [address]
--- NOTE | ~2016-10-19 | DS ---
PATIENT:DEIDRE BLAKE :49 MEDICAL RECORD: [id number] DISCHARGE SUMMARY ADMISSION DATE: 10/19/16 DISCHARGE DATE: 10/20/16 DISCHARGE SUMMARY PROBLEM LIST: 1. Unstable angina. 2. Coronary artery disease. 3. Percutaneous transluminal coronary angioplasty stent left circumflex, left main, first obtuse marginal this admission. 4. Status post coronary artery bypass graft surgery. 5. Hypertension. HOSPITAL COURSE: The patient presents with unstable angina. He was found to have significant disease of the left main, left circumflex, and OM1. He underwent successful percutaneous transluminal coronary angioplasty stent of these territories. He had an uneventful postop course. PLAN: He is discharged home to continue aspirin and Plavix. He will follow up with [facility] in one month. CYN LIU MD CC: [id number] DICTATION DATE: 10/20/16 1500 WOOD TILE INSTALLER: DM 10/21/16 0838 DEP CLI 10/20/16 [facility] [address] [place] [address]
--- NOTE | ~2016-10-19 | HP ---
PATIENT: DEIDRE BLAKE MEDICAL RECORD: [id number] ACCOUNT: [id number] LOCATION:[facility] [id number] : 49 ADMISSION DATE: 10/19/16 HISTORY AND PHYSICAL EXAMINATION PROBLEM LIST: 1. Unstable angina. 2. Coronary artery disease. 3. Status post coronary artery bypass graft surgery. 4. Claudication. 5. Peripheral vascular disease. 6. Hypertension. 7. Hyperlipidemia. HISTORY OF PRESENT ILLNESS: This is a gentleman well-known to us status post bypass surgery four years ago. He has had three days of chest pain and chest discomfort compatible with angina in an unstable fashion. It continues to escalate. His electrocardiogram is with left bundle branch block, T wave inversions inferolaterally. He as well has claudication bilaterally. He has known greater than 80% stenosis of the iliacs bilaterally. PHYSICAL EXAMINATION: HEAD, EYES, EARS, NOSE, AND THROAT: Benign. NECK: Supple. No jugular venous distention. Carotid upstroke plus two bilaterally without bruits. LUNGS: Overall clear to auscultation and percussion. HEART: Regular. Normal S1, normal S2. No S3, no S4. No murmurs. BONES, JOINTS, EXTREMITIES: No clubbing, cyanosis, or edema. OVERALL IMPRESSION: Chest pain compatible with angina in an escalating unstable fashion along with claudication. Most likely he has hemodynamically significant coronary artery disease that is recurrent as well as hemodynamically significant peripheral vascular disease. Will proceed with coronary angiography as well as transcatheter revascularization of his iliacs. CYN LIU MD CC: [id number] DICTATION DATE: 10/19/16 1000 MOLDING AND TRIM INSTALLER: ALISSA 10/20/16 0907 [facility] [address] [place] [address]
--- NOTE | ~2016-10-19 | OP ---
PATIENT NAME: DEIDRE BLAKE MEDICAL RECORD: [id number] :49 LOCATION:D.OPS ADMISSION DATE: SURGEON: CYN LIU MD OPERATION DATE: 10/19/16 PROCEDURES: 1. Percutaneous transluminal coronary angioplasty stent left main. 2. Percutaneous transluminal coronary angioplasty stent left circumflex. 3. Percutaneous transluminal coronary angioplasty stent circumflex obtuse marginal. 4. Left heart catheterization. 5. Selective coronary angiography. 6. Left ventriculogram. 7. Vein graft angiography. 8. Intravascular ultrasound left main and left circumflex. PROCEDURE IN DETAIL: After informed consent was obtained and after detailed explanation of risks, benefits, as well as alternative therapies, the patient elected to proceed with angiogram and angioplasty. The right femoral area was prepped and draped in a normal sterile fashion. The right femoral artery was cannulated via modified Seldinger technique with placement of 6-Luxembourger sheath. All catheters exchanged through this sheath. FINDINGS: The left ventriculogram was performed in standard 30 degree ROSENBAUM view, reveals global hypokinesis. Ejection fraction 35%. SELECTIVE CORONARY ANGIOGRAPHY: 1. The left main has 75% stenosis confirmed by intravascular ultrasound. 2. The left circumflex has greater than 75% stenosis confirmed by intravascular ultrasound. 3. The obtuse marginal has greater than 75% stenosis confirmed by intravascular ultrasound. 4. The left anterior descending is 99% stenosed proximally. 5. Left internal mammary artery to the left anterior descending is widely patent. 6. Vein graft to the circumflex is closed. 7. Vein graft to the right coronary artery is widely patent. 8. Distal right coronary artery is widely patent. PTCA STENT OF THE LEFT MAIN, CIRCUMFLEX, AND FIRST OBTUSE MARGINAL: The first obtuse marginal was addressed with a 3.5 X 12 millimeter Resolute, the left circumflex with a 3.5 X 22 millimeter [place], the left main with a 3.5 X 22 millimeter Jose. The result was 0% residual stenosis. OVERALL IMPRESSION: Successful percutaneous transluminal coronary angioplasty stent of left main, circumflex, and first obtuse marginal all going from greater than 75% initial stenosis to 0% residual stenosis. CYN LIU MD CC: [id number] DICTATION DATE: 10/20/16 1500 JUNIOR ACCOUNTING CLERK: DM 10/21/16 0910 DEP CLI 10/20/16 [facility] [address] [place] [address]
[~2016-10-19 09:40] MED LIST: BAYER ASPIRIN325 MG PO; COREG 3.1253.125 MG PO; LIPITOR40 MG PO; LISINOPRIL10 MG PO; NITROSTAT0.4 MG SL; PLAVIX75 MG PO; ZETIA10 MG PO
[2016-10-19 10:48] LABS: BASOPHILS 0.2 % (0-2); EOSINOPHILS 1.1 % (0-7); HEMOGLOBIN 15.5 g/dL (13.5-17.5); IMMATURE GRANULOCYTES 0.3 % (0-5); LYMPHOCYTES 15.2 % (15-50); MCH 33.1 pg (26.0-34.0); MCHC 34.4 g/dL (31.0-37.0); MCV 96.2 fL (80.0-100.0); MEAN PLATELET VOLUME 9.8 fL (7.4-10.4); MONOCYTES 7.2 % (2-11); PLATELET COUNT 168 10x3/uL (130-400); RBC 4.68 10x6/uL (4.20-6.10); RDW 13.5 % (11.5-14.5); WBC 10.6 10x3/uL (4.8-10.8)
[2016-10-19 10:57] LABS: ALBUMIN 3.8 g/dL (3.4-5.0); ALKALINE PHOSPHATASE 93 U/L (46-116); ALT (SGPT) 24 U/L (10-68); CALC OSMOLALITY 284 mosm/kg (275-300); CARBON DIOXIDE 21.7 mmol/L (21.0-32.0); CHLORIDE - SERUM 107 mmol/L (98-107); POTASSIUM - SERUM 4.1 mmol/L (3.5-5.1); PROTEIN - SERUM 6.9 g/dL (6.4-8.2); SODIUM 140 mmol/L (136-145); UREA NITROGEN 12 mg/dL (7-18); eGFR NON AFRICAN AMERICAN 79 mL/min (90-120)
[2016-10-19 10:58] LABS: AMYLASE - SERUM 62 U/L (25-115); LIPASE 128 U/L (73-393)
[2016-10-19 11:00] LABS: GLUCOSE 202 mg/dL (74-106)
[2016-10-19 11:08] LABS: CHOL - HDL RATIO 2.2 ratio (2.3-4.9); CHOLESTEROL, TOTAL 81 mg/dL (0-200); CREATINE KINASE 89 UL (21-232); HDL CHOLESTEROL 37 mg/dL (32-96); LDL CHOLESTEROL 16 mg/dL (0-100); LDL-HDL RATIO 0.4 ratio (1.5-3.5); PRO BNP 141 pg/mL (0-125); TRIGLYCERIDE 140 mg/dL (30-200)
[2016-10-19 11:09] LABS: TROPONIN-I < 0.017 ng/mL (0.000-0.060)
[2016-10-19 14:02] VITALS: BP 114/61; Ht 177.8 cm; Wt 76.8 kg
[2016-10-19 14:48] VITALS: BP 114/61
[2016-10-19 21:50] VITALS: BP 113/74
[2016-10-20 01:18] VITALS: BP 98/58
[2016-10-20 05:35] VITALS: BP 102/72
[2016-10-20 08:00] VITALS: BP 117/78
[2016-10-20 12:00] VITALS: BP 102/63
[2016-10-20 15:48] VITALS: BP 110/66
== END 2016-10-20 16:14 | disposition home or self-care (01) ==
LOC: D.M2 09:40 → D.OPS 09:40 → D.ER 09:40 → EDSTATUS 11:29 → D.M2 11:31 → D.OPS 10-20 16:14
PROVIDERS: Emergency Medicine; Nurse Practitioner Family
DX: I25.110 Atherosclerotic heart disease of native coronary artery with unstable angina pectoris (principal); I25.710 Atherosclerosis of autologous vein coronary artery bypass graft(s) with unstable angina pectoris; I10 Essential (primary) hypertension; Z95.1 Presence of aortocoronary bypass graft; E78.5 Hyperlipidemia, unspecified; I70.219 Atherosclerosis of native arteries of extremities with intermittent claudication, unspecified extremity; Z79.82 Long term (current) use of aspirin; Z79.02 Long term (current) use of antithrombotics/antiplatelets; Z01.812 Encounter for preprocedural laboratory examination